=== PATIENT | male | born 1995 | race Caucasian/White ===

== ENCOUNTER 2019-05-28 11:19 | Emergency (ER) | payer MEDICAID ==
[~2019-05-28] VITALS: Ht 185.4 cm; Wt 61.4 kg
[2019-05-28 16:03] VITALS: BP 128/66
== END 2019-05-28 16:31 | disposition home or self-care (01) ==
LOC: EMS 11:22
DX: F41.9 Anxiety disorder, unspecified (principal); R00.2 Palpitations; R20.2 Paresthesia of skin; F17.210 Nicotine dependence, cigarettes, uncomplicated
CPT/HCPCS: 93005